=== PATIENT | female | born 2000 | race Caucasian/White ===

== ENCOUNTER 2020-10-21 18:23 | Emergency (ER) | payer OTHER ==
[2020-10-21 19:40] LABS: Bilirubin Neg (Negative); Blood, Urine Negative (Negative); Clarity Clear (Clear); Glucose, Urine (Dipstick) Normal (Negative); Ketone, Urine Negative (Negative); Leukocyte Negative (Negative); Nitrite Negative (Negative); Protein, Urine (Dipstick) 30 mg/dl (Neg-Trace); Urobilinogen Normal mg/dL (Less than 2)
[2020-10-21 20:03] LABS: #Basophils 0.1 10x3/uL (0.0-0.2); #Eosinphils 0.2 10x3/uL (0.0-0.5); #Monocytes 0.6 10x3/uL (0.0-1.1); #Neutrophils 5.7 10x3/uL (1.5-8.4); %Basophils 0.5 % (0.0-2.0); %Eosinophils 2.1 % (0.0-6.0); %Lymphocytes 35.5 % (18.0-47.0); %Monocytes 5.7 % (0.0-10.0); %Neutrophils 55.7 % (40.0-75.0); Mean Corpuscular HGB CONC 33.6 g/dL (32.0-36.0); Mean Corpuscular Hemoglobin 29.3 pg (27.0-33.0); Mean Corpuscular Volume 87.4 fl (81.6-98.3); Platelet Count 218 10x3/uL (150-450); RBC Distribution Width 12.6 % (11.5-14.5); Red Blood Cell (RBC) Count 4.43 10x6/uL (3.90-5.03); White Blood Cell (WBC) Count 10.3 10x3/uL (3.5-10.5)
[2020-10-21 20:10] LABS: BHCG - Serum Negative (NEGATIVE); Pregs Control Background? CLEAR/WHITE (CLR/WHITE); Pregs Control Bar Appear? YES (CONTROL BAR)
[2020-10-21 20:16] LABS: ALT (SGPT) 15 U/L (8-55); AST (SGOT) 15 U/L (5-34); Albumin 4.5 g/dL (3.5-5.0); Alkaline Phosphatase 45 U/L (40-110); Anion Gap 10 mmol/L (10-20); BUN (Urea Nitrogen) 8 mg/dL (7.0-18.7); Bilirubin, Total 1.5 mg/dL (0.2-1.2); Calc. Creatinine Clearance 0 mL/min (70-130); Calcium 9.3 mg/dL (7.8-10.44); Carbon Dioxide 28 mmol/L (22-29); Chloride 106 mmol/L (98-107); Globulin 2.7 g/dL (2.4-3.5); Glucose 94 mg/dL (70-105); Potassium 3.6 mmol/L (3.5-5.1); Protein, Total 7.2 g/dL (6.0-8.3); Sodium 140 mmol/L (136-145)
[2020-10-21 20:38] LABS: RBC/HPF 0-3 HPF (0-3)
[2020-10-21 20:39] LABS: Bacteria/HPF 3+ HPF (None Seen); Mucous/LPF 3+ LPF (<2+)
[2020-10-21] MEDS ORDERED: Ketorolac Tromethamine 30 MG/ML VIAL ONE (20:44)
[2020-10-21] MEDS ORDERED: Ondansetron PF 4 MG/2 ML Vial ONE (20:44)
== END 2020-10-21 22:04 | disposition home or self-care (01) ==
LOC: CSHERS 18:23
DX: R10.31 Right lower quadrant pain (principal); F17.290 Nicotine dependence, other tobacco product, uncomplicated
CPT/HCPCS: 76856; 80053; 81003; 81015; 84703; 85025; 96374; 96375; J1885; J2405